=== PATIENT | female | born 1970 | race African-American/Black ===

== ENCOUNTER 2022-10-17 19:40 | Emergency (ER) | payer BC, OTHER ==
[2022-10-17 19:45] VITALS: BP 132/86; PULSE 91; RESP 18; TEMP 97.7; BMI 40.2
[2022-10-17] MEDS ORDERED: METHOCARBAMOL 500 MG TABLET PO ONE (20:14)
[2022-10-17] MEDS ORDERED: KETOROLAC TROMETHAMINE 30 MG/1 ML VIAL IM ONE (20:14)
[2022-10-17] MEDS ORDERED: LIDOCAINE 5% TOPICAL PATCH TP ONE (20:14)
[2022-10-17] MEDS ORDERED: METHOCARBAMOL 500 MG TABLET ONE (20:27)
[2022-10-17] MEDS ORDERED: KETOROLAC TROMETHAMINE 30 MG/1 ML VIAL ONE (20:28)
[2022-10-17] MEDS ORDERED: LIDOCAINE 5% TOPICAL PATCH ONE (20:28)
[2022-10-17] MEDS ORDERED: LIDOCAINE PATCH REMOVAL MC SCH (22:00)
== END 2022-10-17 21:43 | disposition home or self-care (01) ==
LOC: JER 19:40
PROC: 3E0233Z Introduction of Anti-inflammatory into Muscle, Percutaneous Approach (ICD-10-PCS; principal; 2022-10-17)
DX: M54.50 Low back pain, unspecified (principal)
CPT/HCPCS: 99284-25